=== PATIENT | female | born 1990 | race Hispanic/Latino ===

== ENCOUNTER 2017-03-01 13:43 | Emergency (ER) | payer OTHER, MEDICAID ==
[2017-03-01 14:06] VITALS: BP 126/82; PULSE 91; RESP 18; TEMP 98; O2SAT 96; BMI 35.4
[2017-03-01] MEDS ORDERED: Bupivacaine 0.25% Inj(30mL) IJ STA (14:24)
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
== END 2017-03-01 15:00 | disposition home or self-care (01) ==
LOC: ED 13:43
DX: G89.29 Other chronic pain (principal); F17.210 Nicotine dependence, cigarettes, uncomplicated